=== PATIENT | male | born 1955 | race African-American/Black ===

== ENCOUNTER 2020-11-26 08:20 | Inpatient (IN) | payer MEDICAID ==
[~2020-11-26] VITALS: Ht 152.4 cm; Wt 88.5 kg
[2020-11-26] MEDS ORDERED: ASPIRIN 325MG TABLET PO ONE (08:45)
[2020-11-26] MEDS ORDERED: FUROSEMIDE 100MG/10ML VIAL IVP ONE (08:45)
[2020-11-26 09:17] LABS: BASOPHILS % 0.6 % (0.0-2.0); EOSINOPHILS % 4.4 % (0.0-5.0); HEMATOCRIT. 40.2 % (42.0-52.0); HEMOGLOBIN. 13.2 g/dL (14.0-18.0); LYMPHOCYTES % 12.7 % (20.0-50.0); MEAN CORPUSCULAR HEMOGLOBIN 30.1 pg (28.0-32.0); MEAN CORPUSCULAR VOLUME 91.8 fL (80.0-94.0); MEAN PLATELET VOLUME 9.6 fl (7.4-10.4); MONOCYTES % 10.2 % (2.0-8.0); NEUTROPHILS % 72.1 % (40.0-76.0); PLATELET 123 x1000/uL (130-400); RED BLOOD CELL COUNT 4.38 mill/uL (4.7-6.1); RED CELL DISTRIBUTION WIDTH 15.5 % (11.6-14.6)
[2020-11-26 09:30] LABS: CHLORIDE 111 mEq/L (98-107)
[2020-11-26] MEDS ORDERED: IPRATROPIUM/ALBUTEROL 0.5-3(2.5)MG/3ML NEB NEB PRN (11:15)
[2020-11-26] MEDS ORDERED: ENOXAPARIN 40MG/0.4ML SYR SUBCUT SCH (11:15)
[2020-11-26] MEDS ORDERED: DOCUSATE SODIUM 100MG CAPSULE PO PRN (11:15)
[2020-11-26] MEDS ORDERED: NA PHOS,M-B/NA PHOS,DI-BA ENEMA 118ML PR PRN (11:15)
[2020-11-26] MEDS ORDERED: MAGNESIUM/ALUMINUM HYDROXIDE/SIMETHICONE 30ML UDC PO PRN (11:15)
[2020-11-26] MEDS ORDERED: ACETAMINOPHEN 325MG TABLET PO PRN (11:15)
[2020-11-26] MEDS ORDERED: HYDROCODONE/ACETAMINOPHEN 5/325MG TABLET PO PRN (11:15)
[2020-11-26] MEDS ORDERED: DIPHENHYDRAMINE 50MG/ML VIAL IV PRN (11:15)
[2020-11-26] MEDS ORDERED: LORAZEPAM 2MG/ML CPJ IV PRN (11:15)
[2020-11-26] MEDS ORDERED: GUAIFENESIN 200MG/10ML SUGAR FREE UDC PO PRN (11:15)
[2020-11-26] MEDS ORDERED: ONDANSETRON HCL 4MG/2ML INJ IV PRN (11:15)
[2020-11-26] MEDS ORDERED: MORPHINE SULFATE 2 MG/ML CPJ (NOT FOR IM USE) IV PRN (11:15)
[2020-11-26] MEDS: AMLODIPINE 10MG TABLET PO SCH (11:29)
[2020-11-26] MEDS ORDERED: CLONIDINE 0.3MG TABLET PO PRN (11:30)
[2020-11-26] MEDS ORDERED: DEXTROSE 50% WATER 50ML SYRINGE IV PRN (11:45)
[2020-11-26] MEDS: CLONIDINE 0.1MG TABLET PO PRN ×2 (12:42→21:04)
[2020-11-26] MEDS: ENOXAPARIN 30MG/0.3ML SYR SUBCUT SCH (12:42)
[2020-11-26] MEDS ORDERED: SODIUM POLYSTYRENE SULFONATE 15 G/60 ML BOT PO SCH (12:45)
[2020-11-26] MEDS: BLOOD SUGAR DIAGNOSTIC STRIP TEST SCH ×3 (13:05→21:04)
[2020-11-26] MEDS: CITRIC ACID/SODIUM CITRATE SOLN 30ML UDC PO SCH ×2 (13:05→17:42)
[2020-11-26 13:30] LABS: CREATINE KINASE 193 IU/L (39-308)
[2020-11-26 16:00] VITALS: BP 141/95
[2020-11-26 17:09] VITALS: BP 198/95
[2020-11-26] MEDS: INSULIN LISPRO 100 UNITS/ML SUBCUT SCH ×2 (17:39→20:52)
[2020-11-26] MEDS ORDERED: AMLO10TA4 PO (19:18)
[2020-11-26] MEDS ORDERED: ASPI-1406 PO (19:18)
[2020-11-26] MEDS ORDERED: COR25 PO (19:18)
[2020-11-26] MEDS ORDERED: FURO80TA87 PO (19:18)
[2020-11-26] MEDS ORDERED: SIMV-43 PO (19:18)
[2020-11-26] MEDS ORDERED: DOCU-138 PO (19:18)
[2020-11-26] MEDS ORDERED: TAMS-11 PO (19:18)
[2020-11-26 20:00] VITALS: BP 177/106
[2020-11-27] VITALS: BP 165/90
[2020-11-27 04:00] VITALS: BP_SYST 165; BP_SYST 168; BP_DIAS 90
[2020-11-27] MEDS: CLONIDINE 0.1MG TABLET PO PRN (05:10)
[2020-11-27] MEDS: BLOOD SUGAR DIAGNOSTIC STRIP TEST SCH ×4 (06:41→20:46)
[2020-11-27 08:00] VITALS: BP 189/102
[2020-11-27] MEDS: INSULIN LISPRO 100 UNITS/ML SUBCUT SCH ×4 (08:10→20:47)
[2020-11-27] MEDS: CITRIC ACID/SODIUM CITRATE SOLN 30ML UDC PO SCH ×3 (08:12→17:01)
[2020-11-27] MEDS: ENOXAPARIN 30MG/0.3ML SYR SUBCUT SCH (08:12)
[2020-11-27] MEDS: FUROSEMIDE 40MG/4ML VIAL IV SCH (08:13)
[2020-11-27] MEDS: ASPIRIN 81MG EC TABLET PO SCH (08:13)
[2020-11-27] MEDS: AMLODIPINE 10MG TABLET PO SCH (08:13)
[2020-11-27 12:00] VITALS: BP 170/95
[2020-11-27] MEDS: HYDRALAZINE HCL 50MG TABLET PO SCH ×2 (13:18→21:10)
[2020-11-27 16:00] VITALS: BP 159/92
[2020-11-27 16:53] LABS: HEMATOCRIT. 39.5 % (42.0-52.0); HEMOGLOBIN. 12.9 g/dL (14.0-18.0); MEAN CORPUSCULAR HEMOGLOBIN 29.9 pg (28.0-32.0); MEAN CORPUSCULAR VOLUME 91.3 fL (80.0-94.0); MEAN PLATELET VOLUME 9.4 fl (7.4-10.4); PLATELET 143 x1000/uL (130-400); RED BLOOD CELL COUNT 4.33 mill/uL (4.7-6.1); RED CELL DISTRIBUTION WIDTH 15.3 % (11.6-14.6)
[2020-11-27 17:11] LABS: CHLORIDE 105 mEq/L (98-107); PLATELET ESTIMATE NORMAL
[2020-11-27 17:20] LABS: CREATINE KINASE MB FRACTION 6.2 ng/mL (0.5-3.6); LDL CHOLESTEROL 100 mg/dL (5-100)
[2020-11-27 17:22] LABS: HDL CHOLESTEROL 54 mg/dL (40-59); T4 FREE 1.14 ng/dL (0.76-1.46)
[2020-11-27] MEDS ORDERED: POTASSIUM CHLORIDE 20MEQ TABLET SR PO NR (17:45)
[2020-11-27 20:00] VITALS: BP 165/106
[2020-11-28] VITALS: BP 167/103
[2020-11-28 00:24] LABS: CREATINE KINASE MB FRACTION 5.2 ng/mL (0.5-3.6)
[2020-11-28] MEDS: CLONIDINE 0.1MG TABLET PO PRN (01:07)
[2020-11-28 04:00] VITALS: BP_SYST 166; BP_SYST 179; BP_DIAS 103
[2020-11-28] MEDS: HYDRALAZINE HCL 50MG TABLET PO SCH ×2 (05:26→14:49)
[2020-11-28] MEDS: BLOOD SUGAR DIAGNOSTIC STRIP TEST SCH ×3 (05:45→17:27)
[2020-11-28] MEDS: INSULIN LISPRO 100 UNITS/ML SUBCUT SCH ×3 (06:30→17:15)
[2020-11-28 07:04] LABS: HEMATOCRIT. 39.6 % (42.0-52.0); HEMOGLOBIN. 12.9 g/dL (14.0-18.0); MEAN CORPUSCULAR HEMOGLOBIN 29.7 pg (28.0-32.0); MEAN CORPUSCULAR VOLUME 91.1 fL (80.0-94.0); MEAN PLATELET VOLUME 9.2 fl (7.4-10.4); PLATELET 146 x1000/uL (130-400); RED BLOOD CELL COUNT 4.35 mill/uL (4.7-6.1)
[2020-11-28 07:40] LABS: CREATINE KINASE MB FRACTION 5.1 ng/mL (0.5-3.6)
[2020-11-28 08:00] VITALS: BP 160/86
[2020-11-28] MEDS: ENOXAPARIN 30MG/0.3ML SYR SUBCUT SCH (08:56)
[2020-11-28] MEDS: AMLODIPINE 10MG TABLET PO SCH (08:56)
[2020-11-28] MEDS: ASPIRIN 81MG EC TABLET PO SCH (08:56)
[2020-11-28] MEDS: CITRIC ACID/SODIUM CITRATE SOLN 30ML UDC PO SCH ×3 (08:57→17:27)
[2020-11-28] MEDS: FUROSEMIDE 40MG/4ML VIAL IV SCH (08:57)
[2020-11-28 12:00] VITALS: BP 176/101
[2020-11-28 13:03] LABS: ATYPICAL LYMPHOCYTES 1
[2020-11-28 13:04] LABS: PLATELET ESTIMATE NORMAL
[2020-11-28 16:00] VITALS: BP 155/96
[2020-11-28 17:36] VITALS: BP 155/96
== END 2020-11-28 19:00 | disposition home or self-care (01) | DRG 133 ==
LOC: ER 08:20 → 7WST 10:55 → CANRESERV 13:07 → ENRESERV 13:07 → 5WST 11-27 09:37
PROVIDERS: ADMIT Internal Medicine; ATTEND Internal Medicine
DX: J96.00 Acute respiratory failure, unspecified whether with hypoxia or hypercapnia (principal); E87.5 Hyperkalemia; N17.9 Acute kidney failure, unspecified; N18.9 Chronic kidney disease, unspecified; I25.10 Atherosclerotic heart disease of native coronary artery without angina pectoris; I13.0 Hypertensive heart and chronic kidney disease with heart failure and stage 1 through stage 4 chronic kidney disease, or unspecified chronic kidney disease; E44.0 Moderate protein-calorie malnutrition; E11.22 Type 2 diabetes mellitus with diabetic chronic kidney disease; J45.909 Unspecified asthma, uncomplicated; E78.00 Pure hypercholesterolemia, unspecified; N40.0 Benign prostatic hyperplasia without lower urinary tract symptoms; Z20.822 Contact with and (suspected) exposure to COVID-19; E78.5 Hyperlipidemia, unspecified; J84.9 Interstitial pulmonary disease, unspecified; I50.43 Acute on chronic combined systolic (congestive) and diastolic (congestive) heart failure; Z68.38 Body mass index [BMI] 38.0-38.9, adult; Z79.899 Other long term (current) drug therapy; Z79.84 Long term (current) use of oral hypoglycemic drugs; Z87.891 Personal history of nicotine dependence
CPT/HCPCS: 36415; 71045; 76770; 80048; 80053; 80061; 82550; 82553; 82962; 83036; 83880; 84439; 84443; 84481; 84484; 85025; 85379; 93005; 93306; 99291; J1650; J1940; U0003

== ENCOUNTER 2021-12-23 17:21 | Inpatient (IN) | payer OTHER, MEDICAID ==
[~2021-12-23] VITALS: Ht 170.2 cm; Wt 81.2 kg
[~2021-12-23 17:21] MED LIST: ASPI-1406 PO; COR25 PO; DOCU-138 PO; METH-773 MT; SIMV-43 PO; TAMS-11 PO
[2021-12-23] MEDS ORDERED: IPRATROPIUM BROMIDE (0.02%) 0.5MG/2.5ML NEB HHN STA (17:30)
[2021-12-23] MEDS ORDERED: ALBUTEROL (0.083%) 2.5MG/3ML NEB HHN SCH (17:30)
[2021-12-23] MEDS ORDERED: MAGNESIUM 2 G PREMIX 50 ML IV ONE (17:30)
[2021-12-23] MEDS ORDERED: METHYLPREDNISOLONE SOD SUCC 125 MG/2 ML VIAL IV STA (17:30)
[2021-12-23 18:12] LABS: BASOPHILS % 0.4 % (0.0-2.0); EOSINOPHILS % 3.1 % (0.0-5.0); HEMATOCRIT. 34.6 % (42.0-52.0); HEMOGLOBIN. 11.1 g/dL (14.0-18.0); LYMPHOCYTES % 12.4 % (20.0-50.0); MEAN CORPUSCULAR HEMOGLOBIN 28.8 pg (28.0-32.0); MEAN CORPUSCULAR VOLUME 89.6 fL (80.0-94.0); MEAN PLATELET VOLUME 10.2 fl (7.4-10.4); MONOCYTES % 14.7 % (2.0-8.0); NEUTROPHILS % 69.4 % (40.0-76.0); PLATELET 148 x1000/uL (130-400); RED BLOOD CELL COUNT 3.86 mill/uL (4.7-6.1); RED CELL DISTRIBUTION WIDTH 16.2 % (11.6-14.6)
[2021-12-23 18:17] LABS: CHLORIDE 117 mEq/L (98-107)
[2021-12-23] MEDS ORDERED: LEVOFLOXACIN 750MG PREMIX 150 ML IV ONE (18:30)
[2021-12-24 04:39] VITALS: BP 146/104
[2021-12-24] MEDS ORDERED: IPRATROPIUM/ALBUTEROL 0.5-3(2.5)MG/3ML NEB HHN PRN (05:00)
[2021-12-24] MEDS ORDERED: ACETAMINOPHEN 325MG TABLET PO PRN (05:00)
[2021-12-24] MEDS ORDERED: DEXTROSE 50% WATER 50ML SYRINGE IV PRN (05:00)
[2021-12-24] MEDS: PANTOPRAZOLE 40MG DR TABLET PO SCH (06:29)
[2021-12-24] MEDS: INSULIN LISPRO 100 UNITS/ML SUBCUT SCH ×4 (06:29→21:33)
[2021-12-24] MEDS: BLOOD SUGAR DIAGNOSTIC STRIP TEST SCH ×4 (06:30→20:50)
[2021-12-24] MEDS: HEPARIN 5000 UNITS/ML VIAL SUBCUT SCH ×3 (06:30→21:32)
[2021-12-24 08:00] VITALS: BP 174/101
[2021-12-24] MEDS: CEFTRIAXONE 1,000 MG in DEXTROSE 5% WATER 50 ML IV SCH (08:52)
[2021-12-24] MEDS: AMLODIPINE 10MG TABLET PO SCH (08:52)
[2021-12-24] MEDS: CLONIDINE 0.1MG TABLET PO PRN (08:53)
[2021-12-24] MEDS: ASPIRIN 81MG TABLET PO SCH (08:53)
[2021-12-24 10:13] LABS: CREATINE KINASE MB FRACTION 9.2 ng/mL (0.5-3.6)
[2021-12-24] MEDS ORDERED: HYDRALAZINE HCL 100MG TABLET PO NR (11:45)
[2021-12-24 12:00] VITALS: BP 159/111
[2021-12-24 12:10] LABS: BASOPHILS % 0.2 % (0.0-2.0); HEMATOCRIT. 32.4 % (42.0-52.0); HEMOGLOBIN. 10.4 g/dL (14.0-18.0); LYMPHOCYTES % 10.4 % (20.0-50.0); MEAN CORPUSCULAR HEMOGLOBIN 29.4 pg (28.0-32.0); MEAN CORPUSCULAR VOLUME 91.1 fL (80.0-94.0); MEAN PLATELET VOLUME 9.6 fl (7.4-10.4); MONOCYTES % 3.8 % (2.0-8.0); NEUTROPHILS % 85.6 % (40.0-76.0); PLATELET 136 x1000/uL (130-400); RED BLOOD CELL COUNT 3.56 mill/uL (4.7-6.1); RED CELL DISTRIBUTION WIDTH 16.6 % (11.6-14.6)
[2021-12-24] MEDS: METHYLPREDNISOLONE SOD SUCC 40 MG/ML VIAL IV SCH ×2 (12:15→21:32)
[2021-12-24] MEDS: AZITHROMYCIN 500 MG in DEXT 5% WATER 250 ML IV SCH (12:15)
[2021-12-24 13:46] LABS: CHLORIDE 114 mEq/L (98-107)
[2021-12-24] MEDS: IPRATROPIUM/ALBUTEROL 0.5-3(2.5)MG/3ML NEB HHN SCH ×2 (14:35→21:12)
[2021-12-24] MEDS ORDERED: SODIUM POLYSTYRENE SULFONATE 15 G/60 ML BOT PO NR ×2 (14:45→16:30)
[2021-12-24] MEDS ORDERED: HYDROCODONE/ACETAMINOPHEN 5/325MG TABLET PO PRN (14:45)
[2021-12-24] MEDS ORDERED: NALOXONE HCL 0.4MG/ML VIAL IV PRN (14:45)
[2021-12-24] MEDS ORDERED: ONDANSETRON HCL 4MG/2ML INJ IV PRN (14:45)
[2021-12-24] MEDS ORDERED: LORAZEPAM 2MG/ML CPJ IV PRN (14:45)
[2021-12-24] MEDS ORDERED: BISACODYL 10MG SUPP PR PRN (14:45)
[2021-12-24] MEDS ORDERED: FUROSEMIDE 40MG/4ML VIAL IVP NR (14:45)
[2021-12-24 15:56] LABS: BG BASE EXCESS -11.6 mmol/L (-2.0-2.0); BG CARBOXYHEMOGLOBIN 0.3 % (0.5-1.5); BG DEOXYHEMOGLOBIN 2.4 % (0.0-5.0); BG FRACTION INSPIRED OXYGEN 21; BG HCO3 ACT 13.7 mmol/L (22.0-26.0); BG METHEMOGLOBIN 0.3 % (0.0-1.5); BG OXYGEN SATURATION 97.6 % (92.0-98.5); BG PCO2 29.4 mmHg (35.0-45.0); BG PH 7.285 (7.350-7.450); BG PO2 108.1 mmHg (75.0-100.0); BG SAMPLE SITE RIGHT RADIAL; BG TOTAL HEMOGLOBIN 12.3 g/dL (12.0-18.0); BG VENT MODE ROOM AIR
[2021-12-24 16:00] VITALS: BP 151/94
[2021-12-24 16:19] LABS: CLARITY URINE CLEAR (CLEAR); COLOR URINE YELLOW (YELLOW); KETONES URINE NEGATIVE (NEGATIVE); LEUKOCYTE ESTERASE URINE NEGATIVE (NEGATIVE); NITRITE URINE NEGATIVE (NEGATIVE); OCCULT BLOOD URINE NEGATIVE (NEGATIVE); PROTEIN URINE 2+ (NEGATIVE); SPECIFIC GRAVITY URINE 1.016 (1.005-1.030); UROBILINOGEN URINE 0.2 E.U./dL (0.2-1.0)
[2021-12-24] MEDS: HYDRALAZINE HCL 100MG TABLET PO SCH ×2 (17:09→21:32)
[2021-12-24 17:28] LABS: CREATINE KINASE MB FRACTION 11.6 ng/mL (0.5-3.6)
[2021-12-24 20:00] VITALS: BP 160/95
[2021-12-25] VITALS: BP 149/88
[2021-12-25] MEDS: IPRATROPIUM/ALBUTEROL 0.5-3(2.5)MG/3ML NEB HHN SCH ×4 (01:16→21:07)
[2021-12-25 02:25] LABS: CREATINE KINASE MB FRACTION 13.5 ng/mL (0.5-3.6)
[2021-12-25 04:00] VITALS: BP 154/93
[2021-12-25] MEDS: PANTOPRAZOLE 40MG DR TABLET PO SCH (06:02)
[2021-12-25] MEDS: HYDRALAZINE HCL 100MG TABLET PO SCH ×3 (06:02→20:40)
[2021-12-25] MEDS: METHYLPREDNISOLONE SOD SUCC 40 MG/ML VIAL IV SCH ×3 (06:02→20:39)
[2021-12-25] MEDS: HEPARIN 5000 UNITS/ML VIAL SUBCUT SCH ×3 (06:03→20:40)
[2021-12-25] MEDS: BLOOD SUGAR DIAGNOSTIC STRIP TEST SCH ×4 (06:03→20:40)
[2021-12-25] MEDS: INSULIN LISPRO 100 UNITS/ML SUBCUT SCH ×4 (06:14→20:41)
[2021-12-25 07:57] LABS: HEMATOCRIT. 33.4 % (42.0-52.0); HEMOGLOBIN. 10.7 g/dL (14.0-18.0); MEAN CORPUSCULAR HEMOGLOBIN 28.8 pg (28.0-32.0); MEAN CORPUSCULAR VOLUME 89.6 fL (80.0-94.0); MEAN PLATELET VOLUME 9.9 fl (7.4-10.4); PLATELET 151 x1000/uL (130-400); RED BLOOD CELL COUNT 3.73 mill/uL (4.7-6.1); RED CELL DISTRIBUTION WIDTH 16.4 % (11.6-14.6)
[2021-12-25 08:00] VITALS: BP 148/95
[2021-12-25] MEDS: CEFTRIAXONE 1,000 MG in DEXTROSE 5% WATER 50 ML IV SCH (09:48)
[2021-12-25] MEDS: TAMSULOSIN HCL 0.4MG SR CAPSULE PO SCH (09:48)
[2021-12-25] MEDS: AMLODIPINE 10MG TABLET PO SCH (09:48)
[2021-12-25] MEDS: ASPIRIN 81MG TABLET PO SCH (09:49)
[2021-12-25 12:00] VITALS: BP 148/95
[2021-12-25 12:46] LABS: BG BASE EXCESS -7.1 mmol/L (-2.0-2.0); BG CARBOXYHEMOGLOBIN 0.3 % (0.5-1.5); BG DEOXYHEMOGLOBIN 5.5 % (0.0-5.0); BG FRACTION INSPIRED OXYGEN 21; BG METHEMOGLOBIN 0.2 % (0.0-1.5); BG OXYGEN SATURATION 94.5 % (92.0-98.5); BG PCO2 35.1 mmHg (35.0-45.0); BG PH 7.329 (7.350-7.450); BG PO2 75.8 mmHg (75.0-100.0); BG SAMPLE SITE RIGHT RADIAL; BG TOTAL HEMOGLOBIN 11.4 g/dL (12.0-18.0); BG VENT MODE ROOM AIR
[2021-12-25 12:47] LABS: PLATELET ESTIMATE NORMAL
[2021-12-25] MEDS: AZITHROMYCIN 500 MG in DEXT 5% WATER 250 ML IV SCH (13:50)
[2021-12-25 16:10] VITALS: BP 145/90
[2021-12-25 20:00] VITALS: BP 145/88
[2021-12-26] VITALS: BP 126/99
[2021-12-26] MEDS: IPRATROPIUM/ALBUTEROL 0.5-3(2.5)MG/3ML NEB HHN SCH ×5 (02:23→21:12)
[2021-12-26 04:00] VITALS: BP 148/88
[2021-12-26] MEDS: METHYLPREDNISOLONE SOD SUCC 40 MG/ML VIAL IV SCH ×2 (06:32→12:34)
[2021-12-26] MEDS: HYDRALAZINE HCL 100MG TABLET PO SCH ×3 (06:32→21:19)
[2021-12-26] MEDS: HEPARIN 5000 UNITS/ML VIAL SUBCUT SCH ×3 (06:32→21:20)
[2021-12-26] MEDS: BLOOD SUGAR DIAGNOSTIC STRIP TEST SCH ×4 (06:33→21:22)
[2021-12-26] MEDS: PANTOPRAZOLE 40MG DR TABLET PO SCH (06:33)
[2021-12-26] MEDS: INSULIN LISPRO 100 UNITS/ML SUBCUT SCH ×4 (06:36→21:21)
[2021-12-26 08:00] VITALS: BP 151/82
[2021-12-26 09:34] LABS: HEMATOCRIT. 34.2 % (42.0-52.0); HEMOGLOBIN. 11.2 g/dL (14.0-18.0); MEAN CORPUSCULAR HEMOGLOBIN 29.1 pg (28.0-32.0); MEAN CORPUSCULAR VOLUME 88.8 fL (80.0-94.0); MEAN PLATELET VOLUME 9.5 fl (7.4-10.4); PLATELET 150 x1000/uL (130-400); RED BLOOD CELL COUNT 3.86 mill/uL (4.7-6.1); RED CELL DISTRIBUTION WIDTH 16.2 % (11.6-14.6)
[2021-12-26] MEDS: CEFTRIAXONE 1,000 MG in DEXTROSE 5% WATER 50 ML IV SCH (09:52)
[2021-12-26] MEDS: TAMSULOSIN HCL 0.4MG SR CAPSULE PO SCH (09:52)
[2021-12-26] MEDS: ASPIRIN 81MG TABLET PO SCH (09:52)
[2021-12-26] MEDS: AMLODIPINE 10MG TABLET PO SCH (09:52)
[2021-12-26] MEDS ORDERED: CARVEDILOL 3.125 MG TABLET PO NR (11:15)
[2021-12-26 12:00] VITALS: BP 157/98
[2021-12-26] MEDS: FUROSEMIDE 40MG/4ML VIAL IVP SCH (12:33)
[2021-12-26] MEDS: AZITHROMYCIN 500 MG in DEXT 5% WATER 250 ML IV SCH (12:50)
[2021-12-26] MEDS ORDERED: FLUT1AER INH (14:07)
[2021-12-26] MEDS ORDERED: IPRA3AMP9 NEB (14:07)
[2021-12-26] MEDS ORDERED: HYDR100T26 MT (14:07)
[2021-12-26] MEDS ORDERED: FURO-151 MT (14:07)
[2021-12-26] MEDS ORDERED: COR6 MT (14:07)
[2021-12-26] MEDS ORDERED: TAMS-11 PO (14:07)
[2021-12-26] MEDS ORDERED: P20 PO (14:07)
[2021-12-26] MEDS ORDERED: ASPI-1406 PO (14:07)
[2021-12-26] MEDS ORDERED: SIMV-43 PO (14:07)
[2021-12-26 15:32] LABS: PLATELET ESTIMATE NORMAL
[2021-12-26 16:00] VITALS: BP 150/98
[2021-12-26 20:00] VITALS: BP 177/85
[2021-12-26] MEDS ORDERED: FAMOTIDINE 20MG TABLET PO SCH (21:00)
[2021-12-26] MEDS: CARVEDILOL 3.125 MG TABLET PO SCH (21:19)
[2021-12-26] MEDS: CLONIDINE 0.1MG TABLET PO PRN (21:19)
[2021-12-27] VITALS: BP 149/75
[2021-12-27] MEDS: METHYLPREDNISOLONE SOD SUCC 40 MG/ML VIAL IV SCH ×2 (00:48→13:47)
[2021-12-27] MEDS: IPRATROPIUM/ALBUTEROL 0.5-3(2.5)MG/3ML NEB HHN SCH ×3 (02:23→13:19)
[2021-12-27 04:00] VITALS: BP 144/87
[2021-12-27] MEDS: HEPARIN 5000 UNITS/ML VIAL SUBCUT SCH ×2 (06:28→13:52)
[2021-12-27] MEDS: HYDRALAZINE HCL 100MG TABLET PO SCH ×2 (06:28→13:46)
[2021-12-27] MEDS: INSULIN LISPRO 100 UNITS/ML SUBCUT SCH ×3 (06:29→16:38)
[2021-12-27] MEDS: BLOOD SUGAR DIAGNOSTIC STRIP TEST SCH ×3 (06:30→16:38)
[2021-12-27 07:59] LABS: HEMATOCRIT. 36.7 % (42.0-52.0); HEMOGLOBIN. 11.7 g/dL (14.0-18.0); MEAN CORPUSCULAR HEMOGLOBIN 28.9 pg (28.0-32.0); MEAN CORPUSCULAR VOLUME 90.6 fL (80.0-94.0); PLATELET 112 x1000/uL (130-400); RED BLOOD CELL COUNT 4.05 mill/uL (4.7-6.1); RED CELL DISTRIBUTION WIDTH 16.3 % (11.6-14.6)
[2021-12-27 08:00] VITALS: BP 171/88
[2021-12-27 08:16] LABS: CREATINE KINASE MB FRACTION 9.4 ng/mL (0.5-3.6)
[2021-12-27] MEDS: FUROSEMIDE 40MG/4ML VIAL IVP SCH (08:49)
[2021-12-27] MEDS: TAMSULOSIN HCL 0.4MG SR CAPSULE PO SCH (08:49)
[2021-12-27] MEDS: ASPIRIN 81MG TABLET PO SCH (08:49)
[2021-12-27] MEDS: CEFTRIAXONE 1,000 MG in DEXTROSE 5% WATER 50 ML IV SCH (08:49)
[2021-12-27] MEDS: CARVEDILOL 3.125 MG TABLET PO SCH (08:50)
[2021-12-27] MEDS: AMLODIPINE 10MG TABLET PO SCH (08:50)
[2021-12-27] MEDS ORDERED: AZITHROMYCIN 500 MG TABLET PO SCH (09:00)
[2021-12-27 12:00] VITALS: BP 140/75
[2021-12-27 15:47] VITALS: BP 127/81
[2021-12-27 16:00] VITALS: BP 129/61
[2021-12-27 23:10] LABS: PLATELET ESTIMATE DECREASED
== END 2021-12-27 17:33 | disposition home health service (06) | DRG 193 ==
LOC: ER 17:21 → MICUSO 22:58 → EDBEDREQSVC 12-24 04:05 → EDBEDREQDT 12-24 04:05 → EDBEDREQTM 12-24 04:05 → 5WST 12-24 04:15
PROVIDERS: ADMIT Internal Medicine; ATTEND Internal Medicine
DX: J18.9 Pneumonia, unspecified organism (principal); I50.23 Acute on chronic systolic (congestive) heart failure; I13.0 Hypertensive heart and chronic kidney disease with heart failure and stage 1 through stage 4 chronic kidney disease, or unspecified chronic kidney disease; J44.1 Chronic obstructive pulmonary disease with (acute) exacerbation; E44.1 Mild protein-calorie malnutrition; N17.9 Acute kidney failure, unspecified; I47.2 Ventricular tachycardia; J44.0 Chronic obstructive pulmonary disease with (acute) lower respiratory infection; I42.0 Dilated cardiomyopathy; E11.22 Type 2 diabetes mellitus with diabetic chronic kidney disease; E78.00 Pure hypercholesterolemia, unspecified; N18.9 Chronic kidney disease, unspecified; D64.9 Anemia, unspecified; E66.9 Obesity, unspecified; E78.5 Hyperlipidemia, unspecified; Z20.822 Contact with and (suspected) exposure to COVID-19; I27.20 Pulmonary hypertension, unspecified; E87.5 Hyperkalemia; E87.8 Other disorders of electrolyte and fluid balance, not elsewhere classified; I16.0 Hypertensive urgency; N40.0 Benign prostatic hyperplasia without lower urinary tract symptoms; Z87.891 Personal history of nicotine dependence; Z91.19 Patient's noncompliance with other medical treatment and regimen; Z79.51 Long term (current) use of inhaled steroids; Z79.899 Other long term (current) drug therapy; Z79.82 Long term (current) use of aspirin; Z68.28 Body mass index [BMI] 28.0-28.9, adult; R06.03 Acute respiratory distress
CPT/HCPCS: 36415; 36600; 71045; 76770; 78580; 80048; 80053; 80061; 81003; 82375; 82550; 82553; 82805; 82962; 83036; 83880; 84132; 84153; 84439; 84443; 84484; 85025; 85049; 85379; 87426; 93005; 93306; 93970; 94618; 94640; 97162; 99285; C1893; J0456; J0696; J1644; J1815; J1940; J1956; J2920; J2930; J3475; J7040; J7060; G0103